=== PATIENT | female | born 1955 | race Caucasian/White ===

== ENCOUNTER 2016-04-22 09:14 | Outpatient (CLI) | payer MEDICARE, MEDICAID ==
[2016-04-22 09:40] LABS: eGFR (African) > 60; eGFR (Non-African) > 60
== END 2016-04-22 09:15 ==
LOC: LAB 09:14
PROVIDERS: ATTEND Family Medicine
DX: E87.5 Hyperkalemia (principal)
CPT/HCPCS: 36415; 80048

== ENCOUNTER 2017-03-02 04:31 | Emergency (ER) | payer MEDICARE, OTHER ==
--- NOTE | 2017-03-02 04:38 | ED Physician Documentation ---
General Adult - HISTORIAN Historian: patient - HPI Stated Complaint: weakness Chief Complaint: Weakness Onset: other (She was in care home approx one month ago and she was admitted to hospital prior to this skilled stay for weakness. she states she doesnt walk well at home but "I make it ok" She states she is currently pivoiting to the commode near the couch although this morning she had increased weakness and she lowered herself to the floor she denies a fall. She states that she feels it is from the swelling in her legs. She states the swelling is worse in last few days - although she does report "sometimes the swelling gets that bad" She also reports increased shortness of breath. She denies any cough or fever. She feels she is "sometimes short of breath" She states she is not going back to another SNU. ) Timing: still present Severity: mild Last known Well Code/Unknown Code: Unknown - ROS CONST: no problems MS/SKIN/LYMPH: leg swelling, ankle swelling NEURO/PSYCH: denies: headache - PAST HX Past History: other (DM, Depression , Neuropathy ) Surgeries/Procedures: none Immunizations: referred to PCP Allergies/Adverse Reactions: Allergies Allergy/AdvReac Type Severity Reaction Status Date / Time No Known Allergies Allergy Verified 03/02/17 05:42 Home Medications: Ambulatory Orders Medication Instructions Recorded DULoxetine HCL [Cymbalta] 30 mg PO HS 03/02/17 Dapagliflozin Propanediol [Farxiga] 5 mg PO AM 03/02/17 Gabapentin [Neurontin] 600 mg PO BID 03/02/17 Metformin HCl [Metformin HCl ER] 1,000 mg PO BID 03/02/17 Omeprazole [Omeprazole] 20 mg PO DAILY 03/02/17 - SOCIAL HX Smoking History: non-smoker Alcohol Use: none Drug Use: none - FAMILY HX Family History: No - REVIEWED ASSESSMENTS Nursing Assessment Reviewed: Yes Vitals Reviewed: Yes Progress - Progress Progress: 0630: Findings discussed with pt. She is agreeable to admission DG 0705: Report per nurse given . DG ED Results Lab/Radiology - Radiology Radiology Impressions: Examination: PA and lateral chest. History: Evaluate lung elena. Comparison exam: None available Findings: PA lateral chest demonstrate a prominent cardiac and mediastinal silhouette. Vascular calcifications aortic arch. Bibasilar haziness with blunting of the costophrenic margins and posterior sulci. Osseous structures are appropriate for age. Impression: Bibasilar infiltrates/effusions. Electronically signed on Mar 02, 2017 5:44:51 AM CONSTRUCTION CODE ADMINISTRATOR by: Dave Muse General Adult Physical Exam - PHYSICAL EXAM GENERAL APPEARANCE: no distress EENT: eye inspection normal NECK: normal inspection RESPIRATORY: no resp distress, chest non-tender, breath sounds normal CVS: reg rate & rhythm, heart sounds normal, equal pulses, no murmur ABDOMEN: soft, no organomegaly, normal bowel sounds BACK: normal inspection SKIN: other (scabbing noted on bilateral arms and upper back ) EXTREMITIES: non-tender, normal range of motion, edema (2 + to mid calf ) NEURO: oriented X3, CN's nml as tested, motor nml, sensation nml, mood/affect nml Discharge Clincal Impression: CHF (congestive heart failure) Qualifiers: Congestive heart failure type: unspecified Congestive heart failure chronicity : unspecified Qualified Code(s): I50.9 - Heart failure, unspecified Referrals: Primary Doctor,No [REFERRING] - 2 Days Comments: Report to Dr Penn 0630 DG Condition: Serious Disposition: 02 XFER SHT-TRM HOSP Decision to Admit: [id number] Date of Decison to Admit: 03/02/17 Decision Time: 06:35
[2017-03-02 05:21] LABS: BASOPHILS % 0.4 (0.0-1.5); MEAN CORPUSCULAR HEMOGLOBIN 29.3 pg (28.0-34.0); MEAN CORPUSCULAR VOLUME 98.3 fl (80.0-100.0); NEUTROPHILS # 8.7 # k/uL (1.4-7.7)
[2017-03-02 05:36] LABS: eGFR (African) > 60; eGFR (Non-African) > 60
[2017-03-02] MEDS ORDERED: FUROSEMIDE 40 MG/4 ML VIAL IVP ONE (05:43)
--- NOTE | 2017-03-02 07:06 | Diagnostic Imaging Report ---
DALLIN BURNETT~ [facility] [address] [facility] [address] [place], [place]. [address] ~ ~ ~ ~ Report Submission Date: Mar 02, 2017 5:44:51 AM BRICK HANDLER Patient ~ Study Name: DYLAN BEARDEN ~ Date: Mar 02, 2017 5:17:09 AM BRICK HANDLER ~ Modality Type: CR Gender: F ~ Description: CHEST : 55 ~ Institution: [facility] Physician: DALLIN BURNETT ~ ~ ~ Examination: PA and lateral chest. History: Evaluate lung elena. Comparison exam: None available Findings: PA lateral chest demonstrate a prominent cardiac and mediastinal silhouette. ~Vascular calcifications aortic arch. Bibasilar haziness with blunting of the costophrenic margins and posterior sulci.~ Osseous structures are appropriate for age. Impression: Bibasilar infiltrates/effusions. ~ Electronically signed on Mar 02, 2017 5:44:51 AM BRICK HANDLER by: Dave GAN
[2017-03-02 07:59] VITALS: BP 112/72
[2017-03-03 06:14] LABS: APPEARANCE,URINE CLOUDY (CLEAR); COLOR,URINE YELLOW (YELLOW); OCCULT BLOOD,URINE 1+ (NEGATIVE); PH URINE 5.5 (5.0 - 8.0); UROBILINOGEN URINE 0.2 Eu (0.2-1.0)
== END 2017-03-02 07:40 | disposition short-term general hospital (02) ==
LOC: ED 04:31
DX: I50.9 Heart failure, unspecified (principal); R53.1 Weakness
CPT/HCPCS: 51702; 71020; 80053; 81002; 83880; 84484; 85025; 93005; J1940; 96374; 99282; 99283; S1016

== ENCOUNTER 2017-05-10 11:36 | Outpatient (CLI) | payer MEDICARE, OTHER | END 2017-05-10 11:37 | LOC: CARD 11:36 | PROVIDERS: ATTEND Internal Medicine Cardiovascular Disease | DX: I25.5 Ischemic cardiomyopathy (principal); I05.1 Rheumatic mitral insufficiency; I10 Essential (primary) hypertension; E11.9 Type 2 diabetes mellitus without complications | CPT/HCPCS: G0463 ==

== ENCOUNTER 2017-06-15 16:43 | Emergency (ER) | payer MEDICARE, OTHER ==
[2017-06-15] MEDS ORDERED: 0.9 % SODIUM CHLORIDE 1,000 ML IV ONE (17:04)
[2017-06-15 17:11] LABS: BASOPHILS % 0.5 (0.0-1.5); EOSINOPHILS % 0.9 % (0.0-6.8); MEAN CORPUSCULAR HEMOGLOBIN 29.3 pg (28.0-34.0); MEAN CORPUSCULAR VOLUME 95.6 fl (80.0-100.0); MONOCYTES % 2.3 % (0.0-11.0); NEUTROPHILS # 4.9 # k/uL (1.4-7.7)
[2017-06-15 17:25] LABS: eGFR (African) > 60; eGFR (Non-African) > 60
[2017-06-15] MEDS ORDERED: WATER IV ONE ×2 (17:26→17:27)
[2017-06-15] MEDS ORDERED: POTASSIUM CHLORIDE IV ONE ×2 (17:26→17:27)
[2017-06-15] MEDS ORDERED: CALCIUM GLUCONATE 100 MG/ML VIAL IV ONE (17:31)
[2017-06-15] MEDS ORDERED: CALCIUM CHLORIDE IVP ONE (17:50)
[2017-06-15] MEDS ORDERED: Lidocaine 1% 5ml(IM or SUTURE)(PAIN CLINIC) IJ ONE (17:50)
[2017-06-15] MEDS ORDERED: POTASSIUM CHLORIDE 40 MEQ/NS 1,000 ML IV ONE (17:51)
[2017-06-15] MEDS ORDERED: 0.9 % SODIUM CHLORIDE 1,000 ML with POTASSIUM CHLORIDE 40 MEQ IV ONE ×2 (17:52)
[2017-06-15] MEDS ORDERED: DEXTROSE 50% 50 ML DISP.SYRIN IVP PRN (18:13)
[2017-06-15] MEDS ORDERED: LORazepam 2 MG/ML VIAL IVP ONE (18:18)
--- NOTE | 2017-06-15 18:22 | ED Physician Documentation ---
Nausea/Vomiting/Diarrhea - HISTORIAN Historian: patient - HPI Stated Complaint: N/V/Hypotensive Chief Complaint: Nausea,Vomiting,Diarrhea Onset: days ago (5) Duration: worse Timing: worse Context: denies: out of country travel, bad food, recent trauma Severity: severe Further Comments: yes (61 year female brought in via EMS with nausea, vomiting and hypotension. Patient reports nausea and vomiting for the past 5 days. Denies eating any bad food, no exposure anyone with similar symptoms, no recent travel. Reports she is unable to keep down solids or liquids for 5 days. Zofran 4mg IV given in route by EMS.) - Associated Symptoms Vomiting: frequent Diarrhea: other (denies diarrhea) Abdominal Pain: none (denies) - ROS CONST: denies: fever, sweating, chills CVS/RESP: denies: chest pain, shortness of breath, cough, dry cough, non- productive cough, productive cough, bloody cough, other GI/: dark urine. denies: black stools, problems urinating EYES/ENT: problems with vision (left eye - recent surgery) MS/SKIN/LYMPH: denies: joint pain, leg swelling, rash, swollen glands, ankle swelling, other NEURO/PSYCH: anxiety. denies: headache, fainting, depression - PAST HX Past History: diabetes Type 2. denies: liver disease Other History: AMI (03/02/2017 - EF 30-35%), hypertension, other (depression, peripheral neuropathy, anemia, HLD) Surgeries/Procedures: cardiac stent (02/24/17 - Circ and RCA) Allergies/Adverse Reactions: Allergies Allergy/AdvReac Type Severity Reaction Status Date / Time No Known Allergies Allergy Verified 06/15/17 17:23 Home Medications: Ambulatory Orders Medication Instructions Recorded DULoxetine HCL [Cymbalta] 30 mg PO HS 03/02/17 Dapagliflozin Propanediol [Farxiga] 5 mg PO AM 03/02/17 Gabapentin [Neurontin] 600 mg PO BID 03/02/17 Metformin HCl [Metformin HCl ER] 1,000 mg PO BID 03/02/17 Acetaminophen [Tylenol Extra 2 tab PO TID PRN 06/15/17 Strength] Amoxicillin/Potassium Clav 1 each PO BID #14 tablet 06/15/17 [Augmentin 875-125 Tablet] Aspirin [Juan J] 1 tab PO DAILY 06/15/17 Atorvastatin Calcium [Atorvastatin 2 tab PO DAILY 06/15/17 Calcium] Clopidogrel Bisulfate [Plavix] 1 tab PO DAILY 06/15/17 Furosemide [Lasix] 1 tab PO DAILY 06/15/17 Insulin Glargine,Hum.rec.anlog 5 units SQ DAILY 06/15/17 [Lantus Solostar] Lisinopril [Prinivil] 0.5 tab PO DAILY 06/15/17 Nitroglycerin [Nitroquick] 1 tab PO PRN PRN 06/15/17 Potassium Chloride [Klor-Con M20] 10 meq PO DAILY 06/15/17 Tramadol HCl [Ultram] 50 mg PO BID PRN 06/15/17 - SOCIAL HX Smoking History: non-smoker - FAMILY HX Family History: denies: none - VITAL SIGNS Vital Signs: Vital Signs Temp Pulse Resp BP Pulse Ox 72 16 75/56 97 06/15/17 18:29 06/15/17 16:43 06/15/17 16:43 06/15/17 18:29 - REVIEWED ASSESSMENTS Nursing Assessment Reviewed: Yes Vitals Reviewed: Yes Progress - Progress Progress: Attempting to replace electrolytes - patient not tolerating IV KCL well; no calcium gluconate available - will use CaCL. 1814 Call to [facility] - case discussed with Dr Wade; accepted for transfer - EKG/XRAY/CT EKG: rhythm (Rate 74, St elevation in V3 only) ED Results Lab/Radiology - Lab Results Lab Results: Lab Results 06/15/17 06/15/17 06/15/17 17:05 17:05 17:05 WBC 6.40 K/ul K/ul (4.00-12.00) RBC 3.61 M/ul L M/ul (3.90-5.20) Hgb 10.6 g/dL L g/dL (12.0-16.0) Hct 34.5 % % (34.5-46.5) MCV 95.6 fl fl (80.0-100.0) MCH 29.3 pg pg (28.0-34.0) MCHC 30.6 g/dL g/dL (30.0-36.0) RDW 15.2 % H % (11.3-14.3) Plt Count 298 K/mm3 K/mm3 (130-400) Neut % (Auto) 76.7 % % (39.0-79.0) Lymph % (Auto) 18.8 % % (16.0-50.0) Reeves % (Auto) 2.3 % % (0.0-11.0) Eos % (Auto) 0.9 % % (0.0-6.8) Baso % (Auto) 0.5 (0.0-1.5) Neut # (Auto) 4.9 # k/uL # k/uL (1.4-7.7) Lymph # (Auto) 1.2 # k/uL # k/uL (0.6-4.0) Reeves # (Auto) 0.2 # k/uL # k/uL (0.0-0.9) Eos # (Auto) 0.1 # k/uL # k/uL (0.0-0.6) Baso # (Auto) 0.0 # k/uL # k/uL (0.0-0.5) Reactive Lymphs % 0.8 % % (0.0-5.0) Reactive Lymphs # 0.0 # k/uL # k/uL (0.0-0.8) Sodium 140 mmol/L mmol/L (136-145) Potassium 2.3 mmol/L L* mmol/L (3.5-5.1) Chloride 119 mmol/L H mmol/L (98-107) Carbon Dioxide 7 mmol/L L mmol/L (22-30) BUN 30 mg/dL H mg/dL (7-17) Creatinine 0.80 mg/dL mg/dL (0.52-1.04) Estimated Creat Clear 79 Est GFR ( Amer) > 60 (60 - ) Est GFR (Non-Af Amer) > 60 (60 - ) Glucose 54 mg/dL L mg/dL (74-106) Calcium 4.6 mg/dL L* mg/dL (8.4-10.2) Total Bilirubin 0.4 mg/dL mg/dL (0.2-1.3) AST 10 U/L L U/L (15-46) ALT 32 U/L U/L (13-69) Alkaline Phosphatase 35 U/L L U/L (38-126) Troponin I < 0.03 ng/mL L ng/mL (0.03-0.06) Total Protein 3.3 g/dL L g/dL (6.3-8.2) Albumin 1.6 g/dL L g/dL (3.5-5.0) - Orders Orders: ED Orders Category Date Time Status Continuous EKG monitoring Q30M Care 06/15/17 17:04 Active Continuous Pulse Oximetry Q30M Care 06/15/17 17:[address] IV Lock 1T Care 06/15/17 17:04 Active CBC/PLATELET/DIFF Stat Lab 06/15/17 17:05 Completed CMP Stat Lab 06/15/17 17:05 Completed TROPONIN I (cTnI) Stat Lab 06/15/17 17:05 Completed UA W/MICRO IF INDICATED Stat Lab 06/15/17 17:04 Ordered 0.9 % Sodium Chloride [Normal Saline] 1,000 ml Med 06/15/17 17:04 Discontinued IV NOW Calcium Chloride Med 06/15/17 17:50 Discontinued 1,000 mg IVP NOW ONE Calcium Gluconate Med 06/15/17 17:31 Discontinued 1,000 mg IV NOW ONE Dextrose 50% [Dextrose 50%-Water Syringe] Med 06/15/17 18:13 Ordered 50 ml IVP NOW PRN LORazepam [Ativan] Med 06/15/17 18:18 Discontinued 0.5 mg IVP NOW ONE Lidocaine 1% 5ml(IM or SUTURE) [Xylocaine] Med 06/15/17 17:50 Discontinued 50 mg IJ NOW ONE Potassium Chloride 40 Meq/Ns [Potassium 40 Meq/Ns 1000 Med 06/15/17 17:51 Discontinued ml] 1,000 ml IV .STK-MED Potassium Chloride [Klor-Con 10 Meq/5 ml] 40 meq Med 06/15/17 17:52 Active 0.9 % Sodium Chloride [Normal Saline] 1,000 ml IV Q1H Potassium Chloride in Water [Potassium Chloride] 10 meq Med 06/15/17 17:26 Discontinued Premix Bag [Premix Fluid] 1 bag IV 1T Potassium Chloride in Water [Potassium Chloride] 10 meq Med 06/15/17 17:27 Discontinued Premix Bag [Premix Fluid] 1 bag IV 1T EKG WITH COMPARISON Stat Ther 06/15/17 17:04 Ordered Nausea Physical Exam - EXAM General Appearance: moderate distress EENT: dry mucous membranes, other (left eye with erythema and patch from recent surgery) Respiratory: no resp distress, chest non-tender, breath sounds normal CVS: reg rate & rhythm, heart sounds normal, equal pulses, no murmur, no gallop , PMI nml, no JVD, no friction rub, other (SR on monitor; no ectopy) Abdomen: non-tender, no organomegaly Back: non-tender, painless ROM Skin: warm/dry, pallor Extremities: non-tender, normal range of motion, no evidence of injury, no edema , J, [employer] Neuro/Psych: oriented X3, CN's nml as tested, motor nml, sensation nml, mood/ affect nml Discharge Clincal Impression: Hypokalemia, Hypocalcemia, Hypoalbuminemia, Hypoproteinemia Nausea & vomiting Qualifiers: Vomiting type: unspecified Vomiting Intractability: non-intractable Qualified Code(s): R11.2 - Nausea with vomiting, unspecified Prescriptions: Amoxicillin/Potassium Clav [Augmentin 875-125 Tablet] 1 each PO BID #14 tablet Referrals: Trevor Cedeno MD [Primary Care Provider] - 2 Days Condition: Serious Disposition: XFER SHT-TRM HOSP Decision to Admit: NO Decision Time: 18:30
[2017-06-15] MEDS ORDERED: DEXTROSE 50% 50 ML DISP.SYRIN IVP ONE (18:50)
[2017-06-15 19:12] VITALS: BP 106/54
[2017-06-15 21:40] LABS: APPEARANCE,URINE CLOUDY (CLEAR); COLOR,URINE YELLOW (YELLOW); OCCULT BLOOD,URINE NEGATIVE (NEGATIVE); UROBILINOGEN URINE 0.2 Eu (0.2-1.0)
== END 2017-06-15 19:05 | disposition short-term general hospital (02) ==
LOC: ED 16:43
DX: E87.6 Hypokalemia (principal); E83.51 Hypocalcemia; E88.09 Other disorders of plasma-protein metabolism, not elsewhere classified
CPT/HCPCS: 80053; 81002; 84484; 85025; J2060; J3490; J7030; 96365; 96372; 96374; 96375; 99285; S1016

== ENCOUNTER 2017-09-06 10:46 | Outpatient (CLI) | payer MEDICARE, OTHER | END 2017-09-06 10:48 | LOC: CARD 10:46 | PROVIDERS: ATTEND Internal Medicine Cardiovascular Disease | DX: I42.9 Cardiomyopathy, unspecified (principal); I05.1 Rheumatic mitral insufficiency; I95.9 Hypotension, unspecified | CPT/HCPCS: G0463 ==

== ENCOUNTER 2018-03-14 10:28 | Outpatient (CLI) | payer MEDICARE, OTHER ==
--- NOTE | 2018-03-14 20:51 | Diagnostic Imaging Report ---
IDRIS FRANK [facility] [id number] [facility] [address] Report Submission Date: Mar 14, 2018 12:28:22 PM PARACHUTE RIGGER Patient Study Name: DYLAN BEARDEN Date: Mar 14, 2018 10:57:56 AM PARACHUTE RIGGER Modality Type: US Gender: F Description: US EXTREMITY VEINS UNILAT : 55 Institution: [facility] Physician: IDRIS FRANK Examination: Ultrasound left vein History: FOOT SWELLING Findings: Sonographic evaluation of the left lower extremity venous system from the groin to the popliteal fossa inclusive. Normal compressibility. No luminal filling defect. Normal waveforms and response to augmentation. No popliteal region fluid collection. Impression: No evidence for deep venous thrombosis. Electronically signed on Mar 14, 2018 12:28:22 PM PARACHUTE RIGGER by: Dave GAN
== END 2018-03-14 10:35 ==
LOC: RAD 10:28
PROVIDERS: ATTEND Family Medicine
DX: M79.89 Other specified soft tissue disorders (principal); M79.605 Pain in left leg
CPT/HCPCS: 93971